=== PATIENT | male | born 1985 | race Two or more races ===

== ENCOUNTER 2023-04-29 16:40 | Emergency (ER) | payer BC, SELFPAY ==
[2023-04-29] VITALS (12 sets, daily range): BP systolic 109–133; BP diastolic 76–85; PULSE 53–69; RESP 11–22; TEMP 36.2; O2SAT 100
--- NOTE | ~2023-04-29 | XR_ITS ---
EXAMINATION: XR chest 2V DATE: 04/29/2023 17:29 INDICATION: Chest pain TECHNIQUE: Frontal and lateral views of the chest are obtained COMPARISON: None available FINDINGS: The lungs are free of acute opacities. No pleural effusion or pneumothorax. The cardiomedia stinal silhouette is normal. The visualized bones and soft tissues are unremarkable. IMPRESSION: 1. No acute cardiopulmonary abnormality. Reviewed, dictated and finalized at location F.
--- NOTE | 2023-04-29 16:48 | ECG_ITS ---
Measurements Intervals Roy Rate: 64 P: 17 OK: 129 QRS: 56 QRSD: 78 T: 40 QT: 407 QTc: 421 Interpretive Statements SINUS RHYTHM NORMAL ELECTROCARDIOGRAM NO PREVIOUS ECG AVAILABLE FOR COMPARISON Electronically Signed On 04-30-2023 12:51:40 CDT by Sanford Romo M.D.
[2023-04-29 17:32] LABS: Basophils Percent Auto 0.5 % (0.2-1.2); Eosinophils Absolute Auto 0.2 K/mm3 (0-0.3); Hematocrit 39.8 % (42.0-52.0); Hemoglobin 13.3 g/dL (14.0-18.0); Immature Granulocyte Absolute 0.03 K/mm3 (0.00-0.031); Immature Granulocyte Percent A 0.3 % (0-0.5); Lymphocytes Absolute Auto 3.52 K/mm3 (0.9-3.2); Lymphocytes Percent Auto 40.5 % (18.3-44.2); Mean Corpuscular HGB Conc 33.4 g/dl (32-36); Mean Corpuscular Hemoglobin 27.5 pg (26-34); Mean Corpuscular Volume 82.4 fl (80-100); Monocytes Absolute Auto 0.7 K/mm3 (0.1-0.6); Monocytes Percent Auto 8.2 % (2.6-8.5); Neutrophils Absolute Auto 4.2 K/mm3 (1.3-6.7); Neutrophils Percent Auto 48.5 % (45.5-73.1); Platelet Count Result 285 k/mm3 (150-375); Red Blood Count 4.83 M/mm3 (4.6-6.20); Red Cell Distribution Width 13.4 % (11.5-14.5); White Blood Count 8.7 K/mm3 (4.5-10.0)
[2023-04-29 17:42] LABS: Alanine Aminotransferase 38 U/L (6-50); Albumin Level 4.5 g/dL (3.5-5.1); Alkaline Phosphatase 101 U/L (38-126); Anion Gap 10 mmol/L (8-16); Aspartate Amino Transferase 36 U/L (17-59); Bilirubin,Total 0.4 mg/dL (0.2-1.3); Blood Urea Nitrogen 13 mg/dL (9-20); Calcium 9.1 mg/dL (8.4-10.2); Carbon Dioxide 25 mmol/L (22-30); Chloride 102 mmol/L (98-107); Estimated CRCL calculation 101 ml/min; Estimated Glomerular Filt Rate > 60; Glucose 92 mg/dL (65-110); Lipase 114 U/L (23-300); Potassium 3.7 mmol/L (3.4-5.0); Sodium 137 mmol/L (137-145)
[2023-04-29] MEDS: ASPIRIN 81 MG CHEWABLE TABLET 324 MG PO (17:42)
[2023-04-29 17:46] LABS: Prothrombin Time 13.7 Seconds (11.1-14.7)
[2023-04-29 17:47] LABS: Partial Thromboplastin Time 30.6 SECONDS (22.3-36.8)
[2023-04-29 17:53] LABS: Troponin I < 0.012 ng/mL (0.000-0.034)
[2023-04-29] MEDS: KETOROLAC 15 MG/ML VIAL (*BKC) IV PUSH (18:23)
--- NOTE | 2023-04-30 03:17 | ED.CHESTPAIN ---
HPI - Chest Pain General Chief Complaint: Chest Pain Stated Complaint: chest pain Time Seen by Provider: 04/29/23 17:49 Source: patient Mode of arrival: ambulatory Limitations: no limitations History of Present Illness HPI narrative: 37-year-old male presents from urgent care with complaints of chest pain. Chest pain started last night after dinner. Patient had eaten some eggs when the pain started. Is been intermittent since it started. Denies any aggravating or alleviating factors but does state that with certain movements sometimes it is worse. Denies any diaphoresis, pain rating to the jaw. Related Data Allergies Allergy/AdvReac Type Severity Reaction Status Date / Time No Known Allergies Allergy Verified 04/29/23 16:46 Review of Systems Review of Systems: All systems reviewed & are unremarkable except as noted in HPI and below Exam Const: General: cooperative, healthy appearing, comfortable, no acute distress and well developed Orientation/consciousness: patient oriented x3 HENMT: Head: normal to inspection Eyes: General: appearance normal, both eyes and all related structures Resp: Effort & Inspection: normal respiratory effort and able to speak in complete sentences Auscultation: clear to auscultation bilaterally Cardio: Rate: regular rate Rhythm: regular rhythm Heart sounds: S1 normal heart sound present and S2 normal heart sound present Neuro: General: patient oriented x3 Course Course Emergency Course: Patient without any pain during his stay. It was elicited with palpation but not movement. Discussed all labs and EKG with patient. Aware work-up at this time is negative will be discharged home with plan follow-up with primary care. Patient in agreement with plan of care. Vital Signs Vital signs: Vital Signs Temperature 97.2 F L 04/29/23 16:43 Pulse Rate 65 04/29/23 16:43 Respiratory Rate 14 04/29/23 16:43 Blood Pressure 133/76 04/29/23 16:43 Pulse Oximetry 100 04/29/23 16:43 Oxygen Delivery Room Air 04/29/23 16:43 Temperature 97.2 F L 04/29/23 16:43 Pulse Rate 55 L 04/29/23 18:54 Respiratory Rate 20 04/29/23 18:54 Blood Pressure 114/85 04/29/23 18:54 Pulse Oximetry 100 04/29/23 18:54 Oxygen Delivery Room Air 04/29/23 16:43 MDM - Chest Pain MDM Narrative Medical decision making narrative: 37-year-old male HPI as noted differentials noted below. Work-up to include CBC, CMP, chest x-ray, EKG, troponin, lipase. No chest pain on initial evaluation. CBC without concerning findings, CMP within normal limits. Chest x-ray shows no acute findings. Troponin negative. Due to patient not having pain and troponin not being elevated will discharge home with plan follow-up with primary care for further management work-up if needed. Patient aware to return with any new or worsening concerns. Differential Diagnosis Differential diagnosis: Likely stable angina, unstable angina pectoris, atypical chest pain, st elevation myocardial infarction, costochondritis and chest pain Medical Records Data Attestation: I reviewed the patient's medical records. Lab Data Attestation: I reviewed the patient's lab results. 04/29/23 17:21 04/29/23 17:21 Labs: Lab Results 04/29/23 Range/Units 17:21 WBC 8.7 (4.5-10.0) K/mm3 RBC 4.83 (4.6-6.20) M/mm3 Hgb 13.3 L (14.0-18.0) g/dL Hct 39.8 L (42.0-52.0) % MCV 82.4 (80-100) fl MCH 27.5 (26-34) pg MCHC 33.4 (32-36) g/dl RDW 13.4 (11.5-14.5) % Plt Count 285 (150-375) k/mm3 MPV 9.0 (7.4-10.4) fl Immature Gran % (Auto) 0.3 (0-0.5) % Neut % (Auto) 48.5 (45.5-73.1) % Lymph % (Auto) 40.5 (18.3-44.2) % [place] % (Auto) 8.2 (2.6-8.5) % Eos % (Auto) 2.0 (0-4.4) % Baso % (Auto) 0.5 (0.2-1.2) % Lymph # (Auto) 3.52 H (0.9-3.2) K/mm3 [place] # (Auto) 0.7 H (0.1-0.6) K/mm3 Eos # (Auto) 0.2 (0-0.3) K/mm3 Baso # (Auto) 0.0 (0.0-0.1) K/mm3 Abs Immat Gr
== END 2023-04-29 19:05 | disposition home or self-care (01) ==
PROVIDERS: General Practice; Emergency Provider Nurse Practitioner Family
DX: R07.9 Chest pain, unspecified (principal)
CPT/HCPCS: 36415; 71046; 80053; 83690; 84484; 85025; 85610; 85730; 93005; 96374; 99284; A9270; J1885